=== PATIENT | male | born 1970 | race Caucasian/White ===

== ENCOUNTER 2023-07-31 19:17 | Emergency (ER) | payer BC ==
[~2023-07-31] VITALS: Ht 172.7 cm; Wt 79.4 kg
[~2023-07-31 19:17] MED LIST: CEPH500 PO; SULTRIDS PO
[2023-07-31 20:22] LABS: Influenza A, PCR NEGATIVE (NEGATIVE); Influenza B, PCR NEGATIVE (NEGATIVE); Resp Syncytial Virus, PCR NEGATIVE (NEGATIVE)
[2023-07-31 20:35] LABS: SARS-Cov-2 (COVID-19) PCR, MMC POSITIVE (NEGATIVE)
[2023-07-31 21:45] VITALS: BP 141/80
== END 2023-07-31 21:50 | disposition home or self-care (01) ==
LOC: ER 19:17
PROVIDERS: Student in an Organized Health Care Education/Training Program
DX: U07.1 COVID-19 (principal); K08.89 Other specified disorders of teeth and supporting structures; Z87.891 Personal history of nicotine dependence
CPT/HCPCS: 0241U; 99285